=== PATIENT | male | born 1950 | race Caucasian/White ===

== ENCOUNTER 2018-02-23 08:29 | Emergency (ER) | payer OTHER ==
[~2018-02-23] VITALS: Ht 182.9 cm; Wt 85.3 kg
--- NOTE | 2018-02-23 08:30 | NUR ---
PT BIBRA C/O SPONTANEOUS EPISTAXIS SINCE THIS MORNING. PT STATED "IT STARTED YESTERDAY AND STOPPED THEN IT STARTED AGAIN THIS MORNING". PT IS AOX4. PT IS ON MONITOR IN BED 5. WILL CONTINUE TO MONITOR.
[2018-02-23] MEDS ORDERED: IV NS 0.9% 1,000 ML BAG IV ONE (09:00)
[2018-02-23] MEDS ORDERED: ENALAPRILAT INJ (1.25 MG/ML) 1.25 MG/ML VIAL IV PRN (09:00)
[2018-02-23] MEDS ORDERED: PHENYLEPHRINE 0.5% NASAL SPRAY 15 ML BOTTLE NS ONE ×2 (09:00→09:10)
--- NOTE | 2018-02-23 09:00 | NUR ---
BLOOD DRAWN AND GIVEN TO LAB
--- NOTE | 2018-02-23 09:08 | NUR ---
TECH AT BEDSIDE FOR EKG
[2018-02-23 09:11] LABS: BASOPHILS # (AUTO) 0.1 /CMM (0.0-0.2); BASOPHILS % (AUTO) 1.1 % (0.0-2.0); HEMATOCRIT 53 % (39-51); HEMOGLOBIN 18.3 g/dL (13.5-17.5); LYMPHOCYTES # (AUTO) 1.3 /CMM (0.8-4.8); LYMPHOCYTES % (AUTO) 20.3 % (20.0-44.0); MEAN CORPUSCULAR HGB CONC 35 g/dl (31.0-36.0); MEAN CORPUSCULAR VOLUME 98 fL (80-96); MONOCYTES # (AUTO) 0.6 /CMM (0.1-1.30); MONOCYTES % (AUTO) 9.1 % (2.0-12.0); NEUTROPHILS # (AUTO) 4.1 /CMM (1.8-8.9); NEUTROPHILS % (AUTO) 66.5 % (43.0-81.0); PLATELET COUNT (AUTO) 180 /CMM (150-450); RED BLOOD CELL COUNT(AUTO) 5.38 MIL/uL (4.5-6.0); WHITE BLOOD COUNT (AUTO) 6.2 K/uL (4.3-11.0)
[2018-02-23] MEDS ORDERED: ENALAPRILAT DIHYD. (2.5MG/ML) 1.25 MG/ML VIAL IV ONE (09:11)
--- NOTE | 2018-02-23 09:23 | NUR ---
EARNESTINE-SYNEPHRINE AT BEDSIDE PER MD ORDER
[2018-02-23 09:27] LABS: CALCIUM, SERUM 8.2 mg/dL (8.5-10.1); CARBON DIOXIDE 30 mmol/L (21-32); CHLORIDE 103 mmol/L (98-107); CREATININE 0.8 mg/dL (0.6-1.3); GLUCOSE 132 mg/dL (74-106); POTASSIUM 4.2 mmol/L (3.5-5.1); SODIUM SERUM 142 mmol/L (136-145); UREA NITROGEN, BLOOD 14 mg/dL (7-18)
[2018-02-23 09:32] LABS: ALANINE AMINOTRANSFERASE 79 U/L (12-78); ALBUMIN 3.9 g/dL (3.4-5.0); ASPARTATE AMINOTRANSFERASE 39 U/L (15-37); BILIRUBIN,DIRECT 0.1 mg/dL (0.0-0.2); BILIRUBIN,TOTAL 0.4 mg/dL (0.2-1.0); LIPASE 508 U/L (73-393); TOTAL PROTEIN, SERUM 7.6 g/dL (6.4-8.2)
[2018-02-23] MEDS ORDERED: CLONIDINE HCL 0.1 MG TABLET ONE (09:40)
[2018-02-23 09:43] LABS: ALKALINE PHOSPHATASE 83 U/L (46-116)
[2018-02-23] MEDS ORDERED: CLONIDINE HCL 0.1 MG TABLET PO ONE (10:00)
--- NOTE | 2018-02-23 10:28 | NUR ---
EARNESTINE-SYNEPHRINE GIVEN PER MD ORDER
--- NOTE | 2018-02-23 10:46 | NUR ---
IV removed. Catheter intact and site benign. Pressure and 4x4 applied to site. No bleeding noted.Patient discharged to home in stable condition. Written and verbal after care instructions given. Patient verbalizes understanding of instruction. PT AMBULATORY WITH STEADY GAIT.
[2018-02-23 10:47] VITALS: BP 188/104
== END 2018-02-23 10:48 | disposition home or self-care (01) ==
LOC: ER 08:31
DX: R04.0 Epistaxis (principal); I16.1 Hypertensive emergency; F17.200 Nicotine dependence, unspecified, uncomplicated; F10.20 Alcohol dependence, uncomplicated; Y90.9 Presence of alcohol in blood, level not specified
CPT/HCPCS: 36415; 80048; 80076; 83690; 84484; 85025; 93005; 96374; 99284; A4606; J3490; J7030; Z7610

== ENCOUNTER 2019-01-28 07:54 | Emergency (ER) | payer OTHER ==
[~2019-01-28] VITALS: Ht 185.4 cm; Wt 82.1 kg
--- NOTE | 2019-01-28 08:15 | NUR ---
worsening R foot pain/numbness x 3 weeks, worst since yesterday. 3 weeks, took gout meds, steroids no relief. PATIENT A/OX4, BREATHING EVEN AND UNLABORED, NO SOB NOTED. NEEDS ATTENDED.
--- NOTE | 2019-01-28 08:45 | NUR ---
WASH[employer] ATTENDANT AT BEDSIDE FOR EVAL.
[2019-01-28] MEDS ORDERED: HYDROCODONE/APAP 5/325MG 1 EACH TABLET ONE ×2 (08:51→12:09)
[2019-01-28 08:55] LABS: BASOPHILS # (AUTO) 0.1 /CMM (0.0-0.2); EOSINOPHILS % (AUTO) 8.2 % (0.0-6.0); HEMATOCRIT 49 % (39-51); HEMOGLOBIN 16.9 g/dL (13.5-17.5); LYMPHOCYTES # (AUTO) 1.6 /CMM (0.8-4.8); LYMPHOCYTES % (AUTO) 17.6 % (20.0-44.0); MEAN CORPUSCULAR HGB CONC 34 g/dl (31.0-36.0); MEAN CORPUSCULAR VOLUME 97 fL (80-96); MONOCYTES # (AUTO) 1.1 /CMM (0.1-1.30); MONOCYTES % (AUTO) 11.7 % (2.0-12.0); NEUTROPHILS # (AUTO) 5.7 /CMM (1.8-8.9); NEUTROPHILS % (AUTO) 61.5 % (43.0-81.0); PLATELET COUNT (AUTO) 209 /CMM (150-450); RED BLOOD CELL COUNT(AUTO) 5.04 MIL/uL (4.5-6.0); WHITE BLOOD COUNT (AUTO) 9.3 K/uL (4.3-11.0)
[2019-01-28 09:06] LABS: CALCIUM, SERUM 8.7 mg/dL (8.5-10.1); CARBON DIOXIDE 26 mmol/L (21-32); CHLORIDE 106 mmol/L (98-107); CREATININE 0.9 mg/dL (0.6-1.3); GLUCOSE 140 mg/dL (74-106); POTASSIUM 4.3 mmol/L (3.5-5.1); SODIUM SERUM 138 mmol/L (136-145); UREA NITROGEN, BLOOD 16 mg/dL (7-18)
[2019-01-28] MEDS ORDERED: HYDROCODONE/APAP 5/325MG 1 EACH TABLET PO ONE ×2 (09:30→12:30)
--- NOTE | 2019-01-28 11:51 | NUR ---
Spoke to Dr Paddy Mercer for consult
--- NOTE | 2019-01-28 12:22 | NUR ---
PATIENT REFUSED NICOTINE PATCH, AND REQUESTED FOR SANDWICH, DIETARY MADE AWARE.
[2019-01-28] MEDS ORDERED: NICOTINE PATCH (21MG) 21 MG PATCH.TD24 TD ONE (12:30)
[2019-01-28 12:37] VITALS: BP 150/80
--- NOTE | 2019-01-28 12:37 | NUR ---
IV removed. Catheter intact and site benign. Pressure and 4x4 applied to site. No bleeding noted.Patient discharged to home in stable condition. Written and verbal after care instructions given. Patient verbalizes understanding of instruction.
== END 2019-01-28 12:38 | disposition home or self-care (01) ==
LOC: ER 07:58
DX: I73.9 Peripheral vascular disease, unspecified (principal); I10 Essential (primary) hypertension; E78.5 Hyperlipidemia, unspecified; F17.200 Nicotine dependence, unspecified, uncomplicated
CPT/HCPCS: 36415; 71045-TC; 80048-TC; 84484-TC; 85025-TC; 93926-TC